=== PATIENT | male | born 1965 | race Caucasian/White ===

== ENCOUNTER 2017-06-30 14:39 | Emergency (ER) | payer MEDICARE, MEDICAID ==
[~2017-06-30] VITALS: Ht 182.9 cm; Wt 81.8 kg
[2017-06-30 15:32] VITALS: BP 126/85
[2017-06-30] MEDS ORDERED: LIDOCAINE HCL 1% 10 ML VIAL INJ ONE (16:30)
[2017-06-30] MEDS ORDERED: HYDROCODONE/ACETAMINOPHEN 5-325 MG TABLET PO ONE (16:30)
== END 2017-06-30 15:00 | disposition left against medical advice (07) ==
LOC: EMS 14:41
DX: L02.414 Cutaneous abscess of left upper limb (principal)
CPT/HCPCS: 99281